=== PATIENT | female | born 1990 | race Two or more races ===

== ENCOUNTER 2022-09-15 15:05 | Emergency (ER) | payer MEDICAID, OTHER ==
[~2022-09-15] VITALS: Ht 149.9 cm; Wt 64.0 kg
[2022-09-15 15:14] VITALS: BP 102/71
[2022-09-15] MEDS ORDERED: CEPH500C PO (16:19)
[2022-09-15] MEDS ORDERED: NAPR-746 PO (16:19)
== END 2022-09-15 16:30 | disposition home or self-care (01) ==
LOC: ER 15:05
DX: N90.7 Vulvar cyst (principal)

== ENCOUNTER 2023-05-17 12:31 | Emergency (ER) | payer MEDICAID ==
[~2023-05-17] VITALS: Ht 149.9 cm; Wt 61.3 kg
[~2023-05-17 12:31] MED LIST: CEPH500C PO; NAPR-746 PO
[2023-05-17 13:28] VITALS: BP 106/60; PULSE 78; RESP 18; TEMP 97.2; O2SAT 98
== END 2023-05-17 15:20 | disposition home or self-care (01) ==
LOC: ER 12:31
DX: R92.313 Mammographic fatty tissue density, bilateral breasts (principal)
CPT/HCPCS: 76642

== ENCOUNTER 2023-06-07 08:32 | Emergency (ER) | payer MEDICAID ==
[~2023-06-07] VITALS: Ht 149.9 cm; Wt 63.6 kg
[2023-06-07 09:04] VITALS: BP 123/66; PULSE 86; RESP 18; TEMP 98.6; O2SAT 96
[2023-06-07 09:14] LABS: Urine Bacteria FEW /hpf (None Seen); Urine Blood Negative /uL (Negative); Urine Clarity HAZY (Clear); Urine Color Yellow (Yellow); Urine Hyaline Cast FEW /lpf (0 - 2); Urine Mucus FEW (None Seen); Urine Protein, UAD Negative (Negative); Urine Specific Gravity 1.025 (1.001-1.035); Urine Urobilinogen Normal (Negative); Urine WBC 10 /hpf (0 - 5); Urine pH 5.5 (5.0-8.0)
[2023-06-07] MEDS: KETOROLAC TROMETH 60MG/2ML VIAL IM ONE (09:37)
[2023-06-07] MEDS ORDERED: IBUP-1456 PO (09:45)
[2023-06-07] MEDS ORDERED: BACDST PO (09:45)
[2023-06-07] MEDS ORDERED: METH-1182 PO (09:45)
== END 2023-06-07 09:53 | disposition home or self-care (01) ==
LOC: ER 08:32
DX: M54.41 Lumbago with sciatica, right side (principal); N30.00 Acute cystitis without hematuria; Z32.02 Encounter for pregnancy test, result negative
CPT/HCPCS: 81001; 81025; 96372; 99283; J1885